=== PATIENT | male | born 1950 | race Caucasian/White ===

== ENCOUNTER 2020-05-30 11:00 | Emergency (ER) | payer MEDICARE, OTHER ==
[~2020-05-30] VITALS: Ht 177.8 cm; Wt 102.1 kg
[~2020-05-30 11:00] MED LIST: BACTRIM DS TAB1 EACH PO; CILOSTAZOL100 MG PO; LOSARTAN POTASS25 MG PO; MELOXICAM7.5 MG PO; METFORMIN HCL850 MG PO; NATEGLINIDE60 MG PO; NEXIUM40 MG PO; VESICARE5 MG PO
== END 2020-05-30 18:55 | disposition expired ==
LOC: ER 11:08
DX: I46.9 Cardiac arrest, cause unspecified (principal); Z93.1 Gastrostomy status; Z86.718 Personal history of other venous thrombosis and embolism
CPT/HCPCS: 99284